=== PATIENT | male | born 1950 | race Caucasian/White ===

== ENCOUNTER 2017-12-15 08:43 | Emergency (ER) | payer OTHER, MEDICARE ==
[~2017-12-15] VITALS: Ht 188 cm; Wt 123.9 kg
[~2017-12-15 08:43] MED LIST: AMLODIPINE BESYL5 MG PO; ASPIR-TRIN325 M1 PO; ASPIRIN81 M2 PO; ATENOLOL100 MG PO; FLUOXETINE HCL10 MG PO; FOSINOPRIL SODI20 M1 PO; FOSINOPRIL SODI20 MG PO; LORAZEPAM0.5 MG PO; LORAZEPAM1 MG PO; MONOPRIL20 MG PO; NEXIUM40 MG PO
[2017-12-15] MEDS ORDERED: BACTRIM,SEPT1 TABLET PO (12:04)
[2017-12-15 12:12] VITALS: BP 136/65
== END 2017-12-15 12:12 | disposition home or self-care (01) ==
LOC: EME 08:43
PROC: 0H9AXZZ Drainage of Inguinal Skin, External Approach (ICD-10-PCS; principal; 2017-12-15)
DX: L02.214 Cutaneous abscess of groin (principal); I10 Essential (primary) hypertension; Z79.82 Long term (current) use of aspirin
CPT/HCPCS: 99281; 99283